=== PATIENT | female | born 1935 | race Caucasian/White ===

== ENCOUNTER → 2022-09-26 | Outpatient (CLI) | payer MEDICARE | END | disposition home or self-care (01) | LOC: RT 15:29 | PROVIDERS: ATTEND Internal Medicine Pulmonary Disease | DX: R94.2 Abnormal results of pulmonary function studies (principal); J84.10 Pulmonary fibrosis, unspecified; Z86.11 Personal history of tuberculosis | CPT/HCPCS: 94010; 94727; 94729 ==

== ENCOUNTER 2024-12-16 15:02 | Outpatient (CLI) | payer MEDICARE ==
[2024-12-16 15:55] LABS: TOTAL HEMOGLOBIN 13.7 G/dl (12.0-16.0)
[2024-12-16 16:45] VITALS: PULSE 74; RESP 16; O2SAT 92
== END 2024-12-16 23:59 | disposition home or self-care (01) ==
LOC: RT 15:02
PROVIDERS: ATTEND Internal Medicine Pulmonary Disease
DX: J84.112 Idiopathic pulmonary fibrosis (principal)
CPT/HCPCS: 85018; 94010; 94727; 94729; 94760; A5200